=== PATIENT | female | born 1980 | race African-American/Black ===

== ENCOUNTER 2020-10-10 00:26 | Emergency (ER) | payer MEDICAID, OTHER ==
[~2020-10-10] VITALS: Ht 160 cm; Wt 79.8 kg
[2020-10-10 00:44] VITALS: BP 144/101
== END 2020-10-10 02:01 | disposition left against medical advice (07) ==
LOC: ER 00:26
DX: N64.4 Mastodynia (principal); Z53.21 Procedure and treatment not carried out due to patient leaving prior to being seen by health care provider

== ENCOUNTER 2020-11-11 10:52 | Inpatient (IN) | payer MEDICAID ==
[~2020-11-11] VITALS: Ht 160 cm; Wt 77.5 kg
[2020-11-11] MEDS ORDERED: SODIUM CHLORIDE 0.9% 1,000 ML IV ONE ×2 (11:15)
[2020-11-11 11:25] LABS: Basophils # (auto) 0.1 10 ^3/uL (0-0.2); Basophils % (auto) 1.3 % (0.0-2.0); Eosinophils # (auto) 0.1 10 ^3/uL (0-0.8); Eosinophils % (auto) 2.7 % (0.0-7.0); Hematocrit 44.6 % (36.0-46.0); Hemoglobin 14.9 g/dL (12.2-16.2); Lymphocytes # (auto) 2.4 10 ^3/uL (0.4-5.4); Mean Corpuscular Hemoglobin 27.6 pg (28.0-32.0); Mean Corpuscular Hgb Conc. 33.3 g/dL (32.0-36.0); Mean Corpuscular Volume 82.9 fL (80.0-100.0); Monocytes # (auto) 0.4 10 ^3/uL (0-1.3); Monocytes % (auto) 8.1 % (0.0-12.0); Neutrophils # (auto) 2.3 10 ^3/uL (1.6-8.6); Neutrophils % (auto) 42.9 % (37.0-80.0); Nucleated Red Blood Cells % 0.1 %; Red Blood Cells 5.38 10^6/uL (4.0-5.20); Red Cell Distribution Width 13.9 % (11.8-14.3); White Blood Cell 5.4 10^3/uL (4.4-10.8)
[2020-11-11 11:44] LABS: Albumin 3.8 g/dL (3.4-5.0); Calcium 9.6 mg/dL (8.5-10.1); Potassium 4.3 mmol/L (3.5-5.1)
[2020-11-11 11:48] LABS: BUN/Creatinine Ratio 9.3; Bilirubin, Total 0.6 mg/dL (0.2-1.0); Total Protein 8.5 g/dL (6.4-8.2)
[2020-11-11 13:16] LABS: Urine Bacteria FEW /hpf (None Seen); Urine Blood Negative /uL (Negative); Urine Mucus FEW (None Seen); Urine Specific Gravity 1.034 (1.001-1.035); Urine WBC 3 /hpf (0 - 5)
[2020-11-11] MEDS ORDERED: CHOL20007 PO (13:58)
[2020-11-11] MEDS ORDERED: LETR2.5T6 PO (13:58)
[2020-11-11] MEDS ORDERED: SODIUM CHLORIDE 0.9% 3,000 ML IV ONE (14:30)
[2020-11-11] MEDS ORDERED: DOCUSATE SOD 100 MG CAP PO PRN (14:30)
[2020-11-11] MEDS ORDERED: MORPHINE SULFATE INJECTION 2 MG/ML SYRG IV PRN ×2 (14:30)
[2020-11-11] MEDS ORDERED: ALUM & MAG HYDROX-SIMETH LIQ(MAALOX) 30 ML PO PRN (14:30)
[2020-11-11] MEDS ORDERED: CEFTRIAXONE SODIUM 2 GM in D5W 5% 50 ML IV ONE ×2 (14:30→15:28)
[2020-11-11] MEDS ORDERED: HYDROcodone-ACET 5/325MG TAB PO PRN ×2 (14:30→14:45)
[2020-11-11] MEDS ORDERED: LORazepam 0.5 MG TAB PO PRN (14:30)
[2020-11-11] MEDS ORDERED: ONDANSETRON HCL 4 MG/2 ML VIAL IV PRN (14:30)
[2020-11-11] MEDS ORDERED: ACETAMINOPHEN 325 MG TAB PO PRN ×2 (14:30→23:15)
[2020-11-11] MEDS ORDERED: DEXTROSE (50%) 50ML SYRG IV PRN (14:30)
[2020-11-11] MEDS ORDERED: NITROGLYCERIN 0.4 MG SL TAB SL PRN (14:30)
[2020-11-11 15:04] LABS: Cholesterol 169 mg/dL (< 200); HDL Cholesterol 53 mg/dL (40-59); LDL Cholesterol 79 mg/dL (< 100); Triglycerides 145 mg/dL (< 150)
[2020-11-11 15:06] LABS: Phosphorus 3.1 mg/dL (2.5-4.90)
[2020-11-11 15:11] LABS: Amphetamine Screen, Urine NEGATIVE (NEGATIVE); Barbiturate Scree,Urine NEGATIVE (NEGATIVE); Benzodiazephine Screen, Urine NEGATIVE (NEGATIVE); Cannabinoid Screen, Urine NEGATIVE (NEGATIVE); Cocaine Screen, Urine NEGATIVE (NEGATIVE); Opiate Scree,Urine NEGATIVE (NEGATIVE); Phencyclidine Screen, Urine NEGATIVE (NEGATIVE)
[2020-11-11] MEDS: CALCIUM W/VIT D (600MG/400IU) TAB PO SCH ×2 (18:00→18:47)
[2020-11-11] MEDS: SODIUM CHLORIDE 0.9% 1,000 ML IV SCH ×2 (18:46→22:51)
[2020-11-11] MEDS: ACCU-CHEK COMFORT CURVE STRIP VI SCH ×2 (18:47→22:51)
[2020-11-11] MEDS: InsuLIN REG 1unit/0.01ml Soln (100units/ml) SC SCH ×2 (19:00→22:58)
[2020-11-11] MEDS ORDERED: InsuLIN REG 1unit/0.01ml Soln (100units/ml) ONE ×2 (19:04→22:57)
[2020-11-11 22:00] VITALS: BP 118/72
[2020-11-11] MEDS ORDERED: ATORVASTATIN 20 MG TAB PO SCH (22:00)
[2020-11-11] MEDS ORDERED: ATORVASTATIN 20 MG TAB ONE (22:47)
[2020-11-12] MEDS: SODIUM CHLORIDE 0.9% 1,000 ML IV SCH (04:45)
[2020-11-12 05:00] VITALS: BP 126/90
[2020-11-12] MEDS: ACCU-CHEK COMFORT CURVE STRIP VI SCH ×2 (06:02→11:20)
[2020-11-12] MEDS: InsuLIN REG 1unit/0.01ml Soln (100units/ml) SC SCH ×3 (06:03→11:19)
[2020-11-12] MEDS: CALCIUM W/VIT D (600MG/400IU) TAB PO SCH (08:00)
[2020-11-12 09:00] VITALS: BP 127/85
[2020-11-12] MEDS ORDERED: cefTRIAXone 1GM/50ML D5W 50 ML IV SCH (09:00)
[2020-11-12] MEDS ORDERED: ENOXAPARIN SOD 40 MG/0.4 ML SYRINGE SC SCH (10:00)
[2020-11-12] MEDS ORDERED: CEFTRIAXONE SODIUM 2 GM in D5W 5% 50 ML IV SCH ×4 (10:00)
[2020-11-12] MEDS ORDERED: ASPirin 81 mg TAB PO SCH (10:00)
[2020-11-12] MEDS ORDERED: Letrozole 2.5 MG TAB PO SCH (10:00)
== END 2020-11-12 11:17 | disposition home or self-care (01) | DRG 420 ==
LOC: ER 10:52 → TELE 14:23 → UNDOADMIN 14:23 → TELE-WESTW 14:34 → WEST WING 17:21 → TELE-WESTW 17:22 → WEST WING 22:29
PROVIDERS: ADMIT Hospitalist; ATTEND Hospitalist
DX: E11.65 Type 2 diabetes mellitus with hyperglycemia (principal); E66.3 Overweight; E78.5 Hyperlipidemia, unspecified; N39.0 Urinary tract infection, site not specified; R53.81 Other malaise; R53.83 Other fatigue; Z85.3 Personal history of malignant neoplasm of breast
CPT/HCPCS: 36415; 80053; 80061; 80307; 81001; 82306; 82962; 83036; 83735; 83880; 84100; 84443; 84484; 85025; 87086; 96360; 96361; G0378; J0696; J1815; J2405; J7060